=== PATIENT | female | born 1970 | race Caucasian/White ===

== ENCOUNTER 2016-06-14 13:25 | Emergency (ER) | payer OTHER ==
[2016-06-14 15:32] LABS: ABSOLUTE NEUTROPHIL COUNT 5.2 K/mm3 (1.8-7.7); BASO # 0.1 K/mm3 (0.0-0.2); BASO % 0.6 % (0.2-1.0); EOS # 0.3 (0.0-0.5); HEMATOCRIT 42.3 % (37.0-47.0); HEMOGLOBIN 13.7 gm/l (12.0-16.0); IMM NEUT% 0.5 % (0-1); LYMPH # 2.6 (1.0-4.8); LYMPH % 29.7 % (15-45); MEAN CELL VOLUME 91.2 fl (81.0-99.0); MEAN CORPUSCULAR HEMOGLOBIN 29.5 pg (27.0-31.0); MEAN CORPUSCULAR HGB CONC 32.4 g/dl (33.0-37.0); MEAN PLATELET VOLUME 10.2 fl (7.4-10.4); MONO # 0.6 (0.0-0.8); MONO % 6.3 % (4-12); NEUT % 59.9 % (43-75); PLATELET COUNT 340 K/mm3 (130-400); RED CELL DISTRIBUTION WIDTH 13.2 % (11.5-14.5)
[2016-06-14 15:42] LABS: ALB/GLOB RATIO 1.3 (>1.0); CALCIUM 9.7 mg/dL (8.6-10.3)
--- NOTE | 2016-06-14 15:54 | RAD ---
Exam: Two-view chest COMPARISON: None INDICATION: Shortness of breath since 05/03/2016. Chest pain. FINDINGS: PA and lateral views of the chest were obtained. Cardiac silhouette is within normal limits. Lungs are well-inflated. There is no focal airspace disease or pleural effusion. Bones of the chest wall within normal limits. IMPRESSION: Negative two-view chest.
== END 2016-06-14 17:06 | disposition home or self-care (01) ==
LOC: ED 13:25
DX: R07.9 Chest pain, unspecified (principal); R06.00 Dyspnea, unspecified; I10 Essential (primary) hypertension